=== PATIENT | male | born 1945 | race Caucasian/White ===

== ENCOUNTER 2022-09-08 09:02 | Emergency (ER) | payer OTHER, SELFPAY ==
[2022-09-08 09:24] VITALS: BP 130/75; PULSE 84; TEMP 36.7; O2SAT 95; BMI 27.1
[2022-09-08 09:27] VITALS: BP 126/82; PULSE 73; RESP 16; O2SAT 95
--- NOTE | 2022-09-08 09:29 | ECG_ITS ---
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 Measurements Intervals [place] Rate: 103 P: 0 AK: 0 QRS: 44 QRSD: 90 T: 58 QT: 324 QTc: 426 Interpretive Statements ATRIAL FIBRILLATION WITH RAPID VENTRICULAR RESPONSE ABNORMAL RHYTHM ECG INTERPRETATION BASED ON A DEFAULT AGE OF 40 YEARS No previous ECG available for comparison Electronically Signed On 09-08-2022 14:47:36 CDT by Clay Schaefer M.D. [id number]
--- NOTE | 2022-09-08 09:36 | XR_ITS ---
WS: [id number] Portable AP upright chest, 09/08/2022 Clinical Data: dyspnea/cough Comparison: None. Findings: No nodules, masses or effusions are seen. The heart is normal. The pulmonary vascularity is not increased. No pneumonia or pneumothorax is seen. The aortic arch and descending thoracic aorta s how tortuosity. The diaphragms are flattened. XR/XR chest 1V portable [id number] Impression: Atherosclerosis and hyperinflation.
--- NOTE | 2022-09-08 10:08 | ED_ITS ---
HPI - Arrhythmia/Palpitations General: Chief Complaint: Arrhythmia/Palpitations Stated Complaint: Seo sent for possible AFIB Time Seen by Provider: 09/08/22 09:35 Source: patient Mode of arrival: ambulatory History of Present Illness: 77-year-old male who presents to the emergency room with new onset A-fib. He was scheduled to have cataract surgery today he was discovered to be in A-fib when he arrived at surgery center which was new for him. His procedure was canceled and he was directed to the emergency room. He is not having any chest pain or discomfort at this time no radiation of pain in the neck arms or back. MD complaint: rapid heart beat and heart racing Onset (ago): hour(s) Duration: constant Severity: mild Arrhythmia history: atrial fibrillation Associated symptoms: Deny anxiety, cough, diaphoresis, muscle cramps, nausea, paresthesias, pre-syncope, sense of impending doom, short of breath, syncope or vomiting Review of Systems Const: Denies: fever(s), chills, fatigue, malaise or diaphoresis ENMT: Denies: throat pain, ear or mastoid pain, nasal discharge or nasal congestion Card: Reports: palpitations and irregular heart rhythm; Denies: chest pain, edema, swelling of feet/ankles, syncope or pre-syncope Resp: Denies: dyspnea, productive cough or non-productive cough GI: Denies: abdominal pain, nausea or vomiting : Denies: flank pain, dysuria, urinary frequency or urinary urgency Musc: Denies: neck pain, back pain or muscle cramps Skin/Breast: Denies: rash or pruritus Psych: Denies: anxiety PFSH ED PFSH: Surgical History H/O inguinal hernia repair Physical Exam Const: GENERAL APPEARANCE: cooperative and comfortable ORIE NTATION/CONSCIOUSNESS: Yes awake, Yes oriented to person, Yes oriented to place and Yes oriented to time HENMT: COMMON NORMALS: normocephalic, atraumatic and hearing grossly normal bilaterally HEAD & SCALP: normocephalic and atraumatic Resp: COMMON NORMALS: normal respiratory effort, No retractions, No use of accessory muscles and clear to auscultation bilaterally AUSCULTATION: clear to auscultation bilaterally Cardio: COMMON NORMALS: No murmurs present (Cardio) RATE: tachycardic RHYTHM: abnormal rhythm irregularly irregular GI: COMMON NORMALS: Soft to palpation and No hepatosplenomegaly present AUSCULTATION: Yes normoactive bowel sounds PALPATION: Yes Soft to palpation, No Tenderness to palpation present (GI), No Guarding due to palpation present (GI) and Yes No hepatosplenomegaly present Extremity: COMMON NORMALS: normal to inspection, capillary refill normal, no clubbing, cyanosis or edema, no calf tenderness and no pedal edema Neuro: SENSORIUM/ORIENTATION: Yes oriented to person, Yes oriented to place and Yes oriented to time Skin: COMMON NORMALS: no rashes or lesions noted GENERAL SKIN EXAM: no rash es or lesions noted Course Vital Signs: Vital signs: Vital Signs Temperature 98.1 F 09/08/22 09:24 Pulse Rate 76 09/08/22 13:39 Respiratory Rate 16 09/08/22 12:17 Blood Pressure 125/84 09/08/22 13:39 Pulse Oximetry 96 09/08/22 12:17 Oxygen Delivery Me thod Room Air 09/08/22 12:17 MDM - Arrhythmia/Palpitations Medical Decision Making New onset A-fib. He is controlled after IV and oral beta-rob in the emergency room. He would prefer to go home his chads Vascor is 2. We will start him on full-size aspirin daily and metoprolol succinate 12.5 daily. Set up outpatient echo and follow-up with cardiology or primary care within the next 1 to 2 weeks Medical Records I reviewed the patient's medical records. Lab Data I reviewed the patient's lab results. 09/08/22 10:27 09/08/22 10:27 Radiology Impressions Chest X-Ray 09/08/22 09:36 Impression: Atherosclerosis and hyperinflation. Laboratory Results WBC 6.5 10^3/uL (4.0-10.0) 09/08/22 10:27 RBC 5.12 10^6/uL (4.1-5.3) 09/08/22 10:27 Hgb 16.6 g/dL (11.7-16.6) 09/08/22 10:27 Hct 49.2 % (42.0-52.0) 09/08/22 10:27 MCV 96.1 fl (80-94) H 09/08/22 10:27 MCH 32.4 pg (28.0-34.0) 09/08/22 10:27 MCHC 33.7 g/dL (30.0-36.0) 09/08/22 10:27 RDW 12.8 % (12.1-15.1) 09/08/22 10:27 Plt Count 226 10^3/cmm (130-400) 09/08/22 10:27 MPV 9.1 fL (7.4-10.4) 09/08/22 10:27 Neut % (Auto) 66.9 % 09/08/22 10:27 Lymph % (Auto) 22.9 % 09/08/22 10:27 [place] % (Auto) 8.3 % 09/08/22 10:27 Eos % (Auto) 0.9 % 09/08/22 10:27 Baso % (Auto) 0.8 % 09/08/22 10:27 Neut # (Auto) 4.38 10^3/uL (1.8-7.7) 09/08/22 10:27 Lymph # (Auto) 1.5 10^3/uL (0.8-4.8) 09/08/22 10:27 [place] # (Auto) 0.5 10^3/uL (0.2-0.9) 09/08/22 10:27 Eos # (Auto) 0.1 10^3/uL (0.0-0.8) 09/08/22 10:27 Baso # (Auto) 0.1 10^3/uL (0.0-0.1) 09/08/22 10:27 Nucleated RBC % (auto) 0 % 09/08/22 10:27 Nucleated RBCs # 0.0 /100WBC 09/08/22 10:27 Sodium 137 mmol/L (136-145) 09/08/22 10:27 Potassium 4.2 mmol/L (3.5-5.1) 09/08/22 10:27 Chloride 102 mmol/L (98-107) 09/08/22 10:27 Carbon Dioxide 22 mmol/L (22-29) 09/08/22 10:27 Anion Gap 17.2 (5-19) 09/08/22 10:27 BUN 11 mg/dL (8-23) 09/08/22 10:27 Creatinine 0.6 mg/dL (0.7-1.2) L 09/08/22 10:27 GFR Calculation Not Reportable 09/08/22 10:27 Glucose 103 mg/dL (65-115) 09/08/22 10:27 Calculated Osmolality 284 mOsm/kg (285-295) L 09/08/22 10:27 Calcium 9.1 mg/dL (8.5-10.5) 09/08/22 10:27 Total Bilirubin 0.9 mg/dL (0.15-1.2) 09/08/22 10:27 AST 17 U/L (0-40) 09/08/22 10:27 ALT 10 U/L (0-41) 09/08/22 10:27 Alkaline Phosphatase 68 U/L (40-130) 09/08/22 10:27 Troponin T Baseline 8 ng/L (0-15) 09/08/22 10:27 Troponin T 120 Minute 9.50 ng/L (0-15) 09/08/22 12:21 Delta Troponin T 1.50 ABS# (0-10) 09/08/22 12:21 Total Protein 7.4 g/dL (6.6-8.7) 09/08/22 10:27 Albumin 4.0 g/dL (3.5-5.2) 09/08/22 10:27 Globulin 3.4 g/dL (1.3-4.6) 09/08/22 10:27 TSH 1.82 uIU/mL (0.27-4.20) 09/08/22 10:27 Urine Color Yellow (Yellow) 09/08/22 12:07 Urine Appearance Clear (CLEAR) 09/08/22 12:07 Urine pH 6 (5-7) 09/08/22 12:07 Ur Specific [place] 1.020 (1.005-1.030) 09/08/22 12:07 Urine Protein Neg (Negative) 09/08/22 12:07 Urine Glucose (UA) Norm (Normal) 09/08/22 12:07 Urine Ketones 1+ (Negative) H 09/08/22 12:07 Urine Blood Neg (Negative) 09/08/22 12:07 Urine Nitrate Negative (Negative) 09/08/22 12:07 Urine Bilirubin Neg (Negative) 09/08/22 12:07 Urine Urobilinogen Neg mg/dL (Negative) 09/08/22 12:07 Ur Leukocyte Esterase Negative (Negative) 09/08/22 12:07 Discharge Plan Discharge Patient Disposition: Home Clinical Impression: Atrial fibrillation Condition: Stable Prescriptions: New metoprolol succinate 25 mg tablet extended release 24 hr 12.5 mg PO DAILY Qty: 30 0RF aspirin 325 mg capsule 325 mg PO DAILY Qty: 30 0RF Discharge Orders: Discharge ED (Routine); Ordered 09/08/22 Ordered By: Carlos Boswell Discharge Diet: Usual diet Discharge Activity: Increase activity as tolerated Patient Instructions: Opioid Safety, Pain Management Activity Restrictions/Additional Instructions: You are seen today with new onset atrial fibrillation after discussion you have elected to be discharged from the emergency room. At this time heart rate is well controlled. We will continue on metoprolol extended release 12.5 mg once daily take your first dose this evening. We will also recommend that you take a full-size baby aspirin daily. Case management make arrangements for an outpatient echocardiogram and follow-up with cardiology Coding Level of Care Code ED Molding Associate for Christian Sweeney
[2022-09-08 10:35] LABS: Basophils # 0.1 10^3/uL (0.0-0.1); Basophils % 0.8 %; Eosinophils # 0.1 10^3/uL (0.0-0.8); Eosinophils % 0.9 %; Hematocrit 49.2 % (42.0-52.0); Hemoglobin 16.6 g/dL (11.7-16.6); Lymphocytes # 1.5 10^3/uL (0.8-4.8); Lymphocytes % 22.9 %; Mean Corpuscular HGB Conc 33.7 g/dL (30.0-36.0); Mean Corpuscular Hemoglobin 32.4 pg (28.0-34.0); Mean Corpuscular Volume 96.1 fl (80-94); Mean Platelet Volume 9.1 fL (7.4-10.4); Monocytes # 0.5 10^3/uL (0.2-0.9); Monocytes % 8.3 %; Neutrophils # 4.38 10^3/uL (1.8-7.7); Neutrophils % 66.9 %; Nucleated Red Blood Cells % 0 %; Platelet Count 226 10^3/cmm (130-400); Red Blood Count 5.12 10^6/uL (4.1-5.3); Red Cell Distribution Width 12.8 % (12.1-15.1); White Blood Count 6.5 10^3/uL (4.0-10.0)
--- NOTE | 2022-09-08 10:44 | DCPLANNER ---
lan manager seen patient due to no primary care physician. Patient stated that he is going to see Johana Horowitz.
[2022-09-08 10:59] LABS: Alanine Aminotransferase 10 U/L (0-41); Alkaline Phosphatase 68 U/L (40-130); Anion Gap 17.2 (5-19); Aspartate Amino Transferase 17 U/L (0-40); Blood Urea Nitrogen 11 mg/dL (8-23); Calcium 9.1 mg/dL (8.5-10.5); Carbon Dioxide 22 mmol/L (22-29); Chloride 102 mmol/L (98-107); Globulin 3.4 g/dL (1.3-4.6); Glucose 103 mg/dL (65-115); Osmolality Calculated 284 mOsm/kg (285-295); Potassium 4.2 mmol/L (3.5-5.1); Sodium 137 mmol/L (136-145); Total Bilirubin 0.9 mg/dL (0.15-1.2); Total Protein 7.4 g/dL (6.6-8.7)
[2022-09-08 11:01] LABS: Creatinine Clr Calc Pharmacy 92.0524
[2022-09-08 11:07] LABS: Troponin(5th) Baseline 8 ng/L (0-15)
[2022-09-08] MEDS: metoprolol tartrate 25 mg Tablet PO (11:28)
[2022-09-08] MEDS: metoprolol tartrate 1 mg/1 mL SDV 5 mL 5 MG IVP (11:28)
[2022-09-08 11:29] LABS: Thyroid Stimulating Hormone 1.82 uIU/mL (0.27-4.20)
--- NOTE | 2022-09-08 11:36 | ECG_ITS ---
[facility] Test Date: 2022-09-08 Pat Name: Rich Harper Department: Room: Gender: Male Branch Director: : 1945 Requested By: Carlos Pearl Order Number: [id number] Kirill MD: Clay Schaefer M.D. Measurements Intervals [place] Rate: 97 P: 0 [place]: 0 QRS: 37 QRSD: 74 T: 50 QT: 336 QTc: 427 Interpretive Statements ATRIAL FIBRILLATION ABNORMAL RHYTHM ECG Compared to ECG 09/08/2022 09:29:29 No significant changes Electronically Signed On 09-08-2022 14:49:44 CDT by Clay Schaefer M.D. [id number]
[2022-09-08 11:38] VITALS: BP 126/82; PULSE 78; RESP 16; O2SAT 96
[2022-09-08 12:17] VITALS: BP 108/75; PULSE 76; RESP 16; O2SAT 96
[2022-09-08 12:25] LABS: Add Urine Microscopic? NO; Charge for UA Resulting for Rev
[2022-09-08 12:37] LABS: Protein Urine Neg (Negative); Urine Appearance Clear (CLEAR); Urine Color Yellow (Yellow); pH Urine 6 (5-7)
[2022-09-08 12:38] LABS: Bilirubin Urine Neg (Negative); Blood Urine Neg (Negative); Glucose Urine UA Norm (Normal); Ketones Urine 1+ (Negative); Leukocyte Esterase Urine Negative (Negative); Nitrate Urine Negative (Negative); Urobilinogen Urine Neg (Negative)
[2022-09-08 13:39] VITALS: BP 125/84; PULSE 76
--- NOTE | 2022-09-08 13:48 | DCPLANNER ---
Addendum entered by Joselyn Olson 10/22/22 09:38: This appointment was rescheduled Addendum entered by Joselyn Olson 09/13/22 15:24: Patient has a follow up appointment scheduled for October at 2:[address] Cardona at [facility]. Addendum entered by Joselyn Olson 09/09/22 07:27: night shift manager received the following message from [facility] regarding followup appointment: Attempted to call patient, no vm setup at this time. Original Note: night shift manager had message to schedule a follow up appointment for patient with cardiology. night shift manager sent patients information to the front office staff at [facility]. Patients information will be printed and reviewed. Clinic will call patient with appointment information. night shift manager also had message to schedule an outpatient echo cardiogram. Patient has [employer] insurance, patient was referred to cardiology for follow up.
== END 2022-09-08 13:40 | disposition home or self-care (01) ==
PROVIDERS: Emergency Provider Family Medicine
DX: I48.91 Unspecified atrial fibrillation (principal); Z79.82 Long term (current) use of aspirin
CPT/HCPCS: 36415; 71045; 80053; 81003; 84443; 84484; 85025; 93005; 96374; 99285; J3490

== ENCOUNTER 2022-10-14 13:29 | Outpatient (CLI) | payer OTHER, SELFPAY ==
--- NOTE | 2022-10-14 11:45 | USCV_ITS ---
Rich Harper Age: 77 Gender: M : 1945 Exam Date: 10/14/2022 14:28 Ordering Phys: Johana Horowitz Technologist: DESTINY Exam Location: [facility] [place] Indication: A FIB BP: 155 / 91 HR: 65 Rhythm: Sinus Technical Quality: Adequate MEASUREMENTS (Male / Female) Normal Values 2D ECHO LVOT Diameter 2.0 cm LV Ejection Fraction MOD 2C 63.3 % LV Ejection Fraction 2C AL 64.1 % LA Diameter 2.7 cm LA Width 3.3 cm LA Height 5.0 cm RA Width 3.3 cm RA Height 4.9 cm Aorta at Sinotubular Diameter 2.6 cm IVC Diameter 1.8 cm M-MODE Aortic Annulus Diameter 2.8 cm LA Ao Ratio MM 0.9 MV E Point Septal Separation 0.8 cm DOPPLER Right Atrial Pressure 3.0 mmHg FINDINGS Left Ventricle Normal left ventricular size, systolic function and wall thickness, with no regional wall motion abnormalities. Left ventricular ejection fraction is estimated at 65 %. Right Ventricle Normal right ventricular size and systolic function. Right Atrium Normal right atrial size. Left Atrium Normal left atrial size. Mitral Valve Structurally normal mitral valve. Aortic Valve Structurally normal trileaflet aortic valve. Tricuspid Valve Structurally normal tricuspid valve. Pulmonic Valve Pulmonic valve not well visualized. Pericardium No pericardial effusion. Aorta Normal size aortic root and proximal ascending aorta. IVC Normal IVC dimension with >50% respiratory change of the inferior vena cava. CONCLUSIONS 1. Normal left ventricular size, systolic function and wall thickness, with no regional wall motion abnormalities. Left ventricular ejection fraction is estimated at 65 %. 2. No prior similar studies to compare. Kaila Mehta MD (Electronically Signed) Final Date: 19 Oct 2022 21:15 S
== END 2022-10-14 13:30 | disposition home or self-care (01) ==
LOC: RAD 13:31
PROVIDERS: PCP Nurse Practitioner Family; Visit Provider Nurse Practitioner Family
DX: R06.2 Wheezing (principal)
CPT/HCPCS: 93308

== ENCOUNTER → 2022-11-29 15:57 | Outpatient (BNVA) | payer OTHER, SELFPAY | PROVIDERS: PCP Nurse Practitioner Family; Visit Provider Internal Medicine Cardiovascular Disease | DX: N18.9 Chronic kidney disease, unspecified (principal); I48.91 Unspecified atrial fibrillation; Z79.01 Long term (current) use of anticoagulants; R06.02 Shortness of breath; R07.9 Chest pain, unspecified; R03.0 Elevated blood-pressure reading, without diagnosis of hypertension; E78.5 Hyperlipidemia, unspecified; N40.0 Benign prostatic hyperplasia without lower urinary tract symptoms; Z72.0 Tobacco use; I49.3 Ventricular premature depolarization | CPT/HCPCS: 80048; 84443; 85025; 85610; 93005; 99204 ==

== ENCOUNTER → 2023-06-08 13:28 | Outpatient (BNVA) | payer OTHER, SELFPAY | PROVIDERS: PCP Nurse Practitioner Family; Visit Provider Internal Medicine Cardiovascular Disease | DX: I48.0 Paroxysmal atrial fibrillation (principal); Z79.01 Long term (current) use of anticoagulants; Z79.82 Long term (current) use of aspirin; R03.0 Elevated blood-pressure reading, without diagnosis of hypertension; E78.5 Hyperlipidemia, unspecified; F17.200 Nicotine dependence, unspecified, uncomplicated | CPT/HCPCS: 99214 ==

== ENCOUNTER 2023-07-28 10:14 | Outpatient (CLI) | payer OTHER, SELFPAY ==
--- NOTE | 2023-07-28 | ECG_ITS ---
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 Interpretive Statements NAME OF STUDY: LEXISCAN SESTAMIBI STRESS TEST INDICATION: AFIB, PROCEDURE: At the baseline, the EKG revealed sinus bradycardia with a rate of 57 bpm.. The baseline heart was 57 bpm with a blood pressue of 116/80 mm of Hg Lexiscan was infused over a period of 20 seconds. A total of 0.4 milligrams of Lexiscan was infused. The stress phase was continued for a total of 5 minutes. Heart rate at the end of the stress phase was 67 bpm with a blood pressure 116/80 mm of Hg. The EKG at the peak infusion revealed no significant changes Sestamibi was injected 20 seconds after the Lexiscan infusion. Heart rate at the end of the recovery phase was 67 bpm with a blood pressure of 109/70 mm of Hg. CONCLUSION: 1. No significant EKG changes with the LexiScan infusion 2. No LexiScan induced chest pain or cardiac arrhythmia 3. Normal blood pressure and heart rate response 4. Sestamibi/sestamibi perfusion scan pending; see separate report. Electronically Signed On 07-30-2023 20:41:37 ORNAMENTAL MACHINE OPERATOR by Jose Cardona M.D. [id number]
[2023-07-28 11:15] VITALS: BMI 27.2
--- NOTE | 2023-07-28 11:23 | NMCV_ITS ---
NM rajesh perf SPECT r/s* [id number] Rich Harper Age: 78 Gender: M : 1945 Exam Date: 07/28/2023 11:13 Ordering Phys: Jose Cardona MD ([email or web address]) Technologist: SHELBY Kimble Exam Location: [facility] Indications: CORONARY ANGIOPLASTY STATUS STRESS TEST Please see separate stress test report in [facility] for full findings IMAGE PROTOCOL Rest/Stress 1 Lexiscan Day Radiopharmaceutical Dose (mCi) Administration Site Administered by Rest: Tc-99m 10.8 IV SHELBY Feliciano Sestamibi Stress:Tc-99m 32.7 IV SHELBY Feliciano Sestamibi Rest: 28-Jul-2023 60 Discovery 630 Stress: 28-Jul-2023 30 Discovery 630 0.4mg Lexiscan. Images obtained in supine and prone position. SPECT RESULTS Technical Quality: Excellent Raw Data Analysis: Normal Image Corrections: No attenuation or motion correction applied Summed Stress Score: 4 Summed Rest Score: 0 Summed Difference Score: 4 PERFUSION FINDINGS Small area of minimal to moderately decreased tracer uptake in the apical inferior, apical lateral and LV apex. Some reversibility was noted at rest FUNCTIONAL RESULTS (calculated via Gated SPECT) Stress Image LV EF (%): 60 Stress EDV (mL):102 TID: 1.11 Stress ESV (mL):41 FUNCTIONAL FINDINGS: Segmental wall motion analysis revealing no gross wall motion abnormalities IMPRESSIONS 1. Myocardial perfusion imaging revealing a small area of reversible defect involving the apical inferior, apical lateral and LV apex suggesting ischemia in the distribution of the distal left and descending artery and left circumflex artery. 2. Normal LV ejection fraction 60%. 3. LV wall motion analysis revealing no gross wall motion abnormalities. 4. Normal LV volume. No similar previous studies are available for comparison Dr Jose Cardona MD [facility] (Electronically Signed) Final Date: 28 July 2023 16:39 S
[2023-07-28] MEDS: regadenoson 0.4 Mg/5 ml Syringe 0.400000000000000022 MG IVP (11:52)
[2023-07-28 12:46] VITALS: BP 116/80; PULSE 66
== END 2023-07-28 10:15 | disposition home or self-care (01) ==
PROVIDERS: PCP Nurse Practitioner Family; Visit Provider Internal Medicine Cardiovascular Disease
DX: Z98.61 Coronary angioplasty status (principal)
CPT/HCPCS: 36415; 78452; 93017; 96374; 99214; A9500; J2785

== ENCOUNTER 2023-08-05 11:04 | Outpatient (CLI) | payer OTHER, SELFPAY ==
--- NOTE | 2023-08-05 11:16 | CT_ITS ---
WS: [id number] CT ABDOMEN PELVIS TECHNIQUE: Contrast-enhanced CT of the abdomen and pelvis with coronal and sagittal reformatted image s. CLINICAL INFORMATION: POST PARENTIAL PAIN DIARRHEA COMPARISON: None. DLP: 421.[address] scans at [facility] use at least one of these dose optimization techniques: automated e xposure control; mA and/or kV adjustment per patient size (includes targeted exams where dose is matc hed to clinical indication); or iterative reconstruction. FINDINGS: Diffuse fatty infiltration of the liver. Normal spleen. Small esophageal hiatal hernia. Portal vein a nd splenic vein are patent. Lung bases are well aerated. Coronary calcification. Normal caliber abdominal aorta. Aortic calcifica tion. Tortuous common iliac arteries. Fatty atrophy of the pancreas. Adrenal glands are normal. Normal renal parenchymal enhancement. No hy dronephrosis. Small bilateral renal cysts. LEFT lower pole renal cyst with calcifications. Lower pole renal cyst measures 2.2 x 2.2 cm. Celiac and SMA are patent. Markedly enlarged prostate suspicious for neoplasm measuring 5.2 x 7.5 cm with evidence of bladder outlet obstruction. Thickening of the seminal vesicles bilaterally. Short se gment area of stricture in the sigmoid colon extending over approximately 2.5 cm in the mid sigmoid c olon. Associated focal area of eccentric soft tissue just distal to the stricture measuring 1.7 cm rooney spicious for neoplasm. Recommend further evaluation with colonoscopy. Dense constipation in the RIGHT colon. Normal appendix. No periaortic lymphadenopathy. No inguinal ly mphadenopathy. Advanced spondylitic changes lumbar spine. Small fat-containing RIGHT inguinal hernia. IMPRESSION: 1. Eccentric soft tissue thickening in the sigmoid colon suspicious for neoplasm measuring 1.7 cm. R ecommend further evaluation with colonoscopy. Adjacent area of short segment stricture proximal to th e focus of soft tissue thickening. 2. Markedly enlarged nodular enhancing prostate suspicious for neoplasia. Associated indentation of the bladder with bladder outlet obstruction. Diffuse thickening of the seminal vesicles. Recommend co rrelation PSA. 3. Diffuse fatty infiltration of the liver. 4. Small esophageal hiatal hernia. 5. No other acute findings.
[2023-08-05 12:11] LABS: Blood Urea Nitrogen 15 mg/dL (8-23)
[2023-08-05] MEDS: iohexol 350 mg/mL 500 mL Btl (per mL) IV (12:17)
[2023-08-05] MEDS: iohexol 350 mg/mL 500 mL Btl (per mL) PO (12:18)
== END 2023-08-05 11:05 | disposition home or self-care (01) ==
PROVIDERS: PCP Nurse Practitioner Family; Visit Provider Family Medicine
DX: R19.7 Diarrhea, unspecified (principal); R93.3 Abnormal findings on diagnostic imaging of other parts of digestive tract; N40.1 Benign prostatic hyperplasia with lower urinary tract symptoms; N13.8 Other obstructive and reflux uropathy; K76.0 Fatty (change of) liver, not elsewhere classified; K44.9 Diaphragmatic hernia without obstruction or gangrene
CPT/HCPCS: 74177; 82565; 84520; Q9967

== ENCOUNTER 2023-10-25 12:30 | Outpatient (CLI) | payer OTHER, SELFPAY ==
--- NOTE | 2023-10-25 12:35 | PETR_ITS ---
PROCEDURE INFORMATION: Exam: PET/CT Skull Base to Mid-thigh Exam date and time: 10/25/2023 12:56 PM Age: 78 years old Clinical indication: Abnormal findings; Eccentric soft tissue thickening in the sigmoid colon suspicious for neoplasm measuring 1.7 cm. Recommend further evaluation with colonoscopy. Adjacent area of short segment stricture proximal to the focus of soft tissue thickening. 2. Markedly enlarged nodular enhancing prostate suspicious for neoplasia. Associated indentation of the bladder with bladder outlet obstruction. Diffuse thickening of the seminal; Prior surgery; Surgery date: 6+ months; Surgery type: Hernia; Additional info: Abnormal imaging LABS AND CLINICAL REPORTS: Glucose: 91 mg/dl Treatment strategy for malignancy (PET staging): Initial Staging (PI) TECHNIQUE: Imaging protocol: Following at least four-hour fasting and following the injection of radiopharmaceutical, low dose CT images were obtained. Then, PET images were obtained. Attenuation corrected images were constructed using the CT scan. Fused images of PET and CT were reviewed. The standardized uptake values (SUV) reported below are maximum values within a region of interest, expressed in gm/ml. Exam includes orbital meatal line to mid-thigh. Radiopharmaceutical: 12.8 mCi F-18 FDG (Fluorodeoxyglucose), IV. Time of imaging post radiopharmaceutical administration: 1 hour Injection site: Right hand COMPARISON: CT abdomen pelvis w con* [id number] 08/05/2023 12:13 PM FINDINGS: Brain: Visualized brain has normal physiologic uptake. Pharynx: No abnormal uptake. Larynx: No abnormal uptake. Lungs, pleura and trachea: Mild biapical pleural scarring is noted. A triangular region of soft tissue density in the posterior right lung apex measuring 4.1 x 1.5 cm in the axial plane on series 3, image 64 which is contiguous with the right apical pleural surface demonstrates an SUV max 2.2. An ovoid solid nodule at the left lung apex measuring 1.2 x 0.6 cm on series 3, image 62 is not radiotracer avid, SUV max 0.8. Mild centrilobular emphysematous changes are present. Mild biapical bullous versus paraseptal emphysematous changes are noted. Heart: Normal physiologic uptake. Mediastinal space: No abnormal uptake. Liver: No abnormal uptake. Gallbladder and bile ducts: No abnormal uptake. Pancreas: No abnormal uptake. Spleen: No abnormal uptake. Adrenal glands: No abnormal uptake. Kidneys and ureters: Normal physiologic uptake. Nonobstructing left renal inferior pole calculi are present. Unremarkable right kidney. Stomach and bowel: A region of uptake in the sigmoid colon demonstrates an SUV max 5.7 on series 3, image 212. Assessment of the wall of sigmoid colon in this region is limited by incomplete distension. This of uptake appears to be in the region of previously suspected soft tissue thickening of the wall of the sigmoid colon on the prior CT. Uptake in the region of the rectum is noted, SUV max 6.0. Assessment of the rectal wall is limited by incomplete distension. Urinary bladder: Diffuse mild thickening of the wall of the urinary bladder is noted. Reproductive: There is marked enlargement of prostate gland measuring 7.5 x 6.1 cm on series 3, image 223. A small focus of uptake along the posterior prostate gland is noted, SUV max 4.0 on PET series 12, image 226. Vasculature: No abnormal uptake. There are diffuse atherosclerotic changes including within the coronary arteries. Lymph nodes: No abnormal uptake. No lymphadenopathy in the head, neck, chest, abdomen, pelvis, and extremities. Skeleton: No abnormal uptake in the visualized axial and appendicular skeleton. Degenerative changes in the spine are present. Mild curvature of the lumbar spine convex to the right is present. There is relative straightening of the lumbar lordosis. Soft tissues: No abnormal uptake in the visualized head, neck, chest, abdomen, pelvis, and extremities. METRICS: Mediastinal blood pool: SUV max 2.5 [facility] [id number] IMPRESSION: 1. Uptake in the sigmoid colon is noted which appears to be in the region of suspected wall thickening on the prior CT. Localized inflammatory or malignant involvement in this region cannot be excluded. Additionally, there is indeterminate, possibly inflammatory uptake in the region of the rectum which is not well assessed secondary to incomplete distension. Colonoscopy may be of benefit for further assessment if this has not been performed. 2. Marked enlargement of the prostate gland are present. A small focus of relative increased uptake along the posterior aspect of the prostate gland is noted which may be physiologic or inflammatory. Malignancy cannot be excluded. Evaluation of the prostate gland is limited by PET-CT. Correlation with clinical findings/pasty levels is recommended. 3. Diffuse thickening of the wall of the urinary bladder is noted which may be related to cystitis or benign hypertrophy associated with outlet obstructive changes related to enlargement of the prostate gland. 4. A triangular region of soft tissue density associated contiguous with right apical pleural thickening in the right lung is noted with low-level uptake which is likely inflammatory. 5. A small left apical pulmonary nodule is not radiotracer avid favoring a benign etiology. 6. Additional nonurgent findings as detailed above.
== END 2023-10-25 12:31 | disposition home or self-care (01) ==
LOC: RAD 12:30
PROVIDERS: PCP Nurse Practitioner Family; Visit Provider Family Medicine
DX: D40.0 Neoplasm of uncertain behavior of prostate (principal); R93.3 Abnormal findings on diagnostic imaging of other parts of digestive tract; N32.89 Other specified disorders of bladder; N42.9 Disorder of prostate, unspecified; J98.4 Other disorders of lung; R91.1 Solitary pulmonary nodule; J43.2 Centrilobular emphysema; J43.9 Emphysema, unspecified; N20.0 Calculus of kidney; M43.8X6 Other specified deforming dorsopathies, lumbar region
CPT/HCPCS: 78815; A9552

== ENCOUNTER → 2023-12-08 10:29 | Outpatient (BNVA) | payer OTHER, SELFPAY | PROVIDERS: PCP Nurse Practitioner Family; Visit Provider Internal Medicine Cardiovascular Disease | DX: R94.39 Abnormal result of other cardiovascular function study (principal); I48.0 Paroxysmal atrial fibrillation; R03.0 Elevated blood-pressure reading, without diagnosis of hypertension; E78.5 Hyperlipidemia, unspecified; Z72.0 Tobacco use; Z79.01 Long term (current) use of anticoagulants; Z79.82 Long term (current) use of aspirin | CPT/HCPCS: 99214 ==

== ENCOUNTER → 2024-02-06 08:51 | Outpatient (BNVA) | payer OTHER, SELFPAY | PROVIDERS: PCP Nurse Practitioner Family; Visit Provider Nurse Practitioner Family | DX: N40.0 Benign prostatic hyperplasia without lower urinary tract symptoms (principal) | CPT/HCPCS: 84153 ==

== ENCOUNTER → 2024-06-28 09:50 | Outpatient (BNVA) | payer MEDICARE, OTHER, SELFPAY | PROVIDERS: PCP Nurse Practitioner Family; Visit Provider Nurse Practitioner Family | DX: I48.0 Paroxysmal atrial fibrillation (principal); E78.5 Hyperlipidemia, unspecified; R94.39 Abnormal result of other cardiovascular function study; Z87.891 Personal history of nicotine dependence; Z79.01 Long term (current) use of anticoagulants | CPT/HCPCS: 99214 ==

== ENCOUNTER → 2024-12-10 10:48 | Outpatient (BNVA) | payer OTHER, MEDICARE, SELFPAY | PROVIDERS: PCP Nurse Practitioner Family; Visit Provider Internal Medicine Cardiovascular Disease | DX: R94.39 Abnormal result of other cardiovascular function study (principal); I48.0 Paroxysmal atrial fibrillation; R03.0 Elevated blood-pressure reading, without diagnosis of hypertension; E78.5 Hyperlipidemia, unspecified; Z87.891 Personal history of nicotine dependence; Z79.01 Long term (current) use of anticoagulants; Z79.82 Long term (current) use of aspirin | CPT/HCPCS: 99214 ==